=== PATIENT | male | born 1985 | race Caucasian/White ===

== ENCOUNTER 2021-01-25 09:37 | Outpatient (CLI) | payer BC | END 2021-01-25 09:38 | disposition home or self-care (01) | LOC: DTY/OP 09:37 | PROVIDERS: ATTEND Family Medicine | DX: E66.01 Morbid (severe) obesity due to excess calories (principal) | CPT/HCPCS: 97802 ==

== ENCOUNTER 2023-08-18 16:00 | Outpatient (CLI) | payer BC | END 2023-08-18 16:01 | disposition home or self-care (01) | LOC: SLEEPLAB 16:00 | PROVIDERS: ATTEND Family Medicine | DX: G47.33 Obstructive sleep apnea (adult) (pediatric) (principal); R06.83 Snoring | CPT/HCPCS: 95800 ==